=== PATIENT | female | born 1975 | race Caucasian/White ===

== ENCOUNTER 2023-08-05 20:39 | Outpatient (REF) | payer OTHER, SELFPAY ==
[2023-08-09 19:11] LABS: Age Gdln ACOG Testing Note (.); HPV Aptima Negative (Negative); IGP, Aptima HPV, rfx 16/18,45 Note (.)
== END 2023-08-05 20:40 | disposition home or self-care (01) ==
LOC: LAB 20:39
PROVIDERS: PCP Family Medicine; Visit Provider Obstetrics & Gynecology
DX: Z01.419 Encounter for gynecological examination (general) (routine) without abnormal findings (principal)
CPT/HCPCS: 87624; G0145

== ENCOUNTER 2024-08-27 21:04 | Outpatient (REF) | payer OTHER, SELFPAY ==
--- OUTSIDE RECORDS SUMMARY | 2024-08-27 21:07 | XMS_ITS | CCD ---
Author Organization [facility] Care Team Providers Care Commercial Lending Relationship Manager Name Role Phone Missy Godinez Unavailable MISSY GODINEZ Admitting Unavailable MISSY GODINEZ Attending Unavailable JOE, DR REIS Primary Care Unavailable MISSY GODINEZ Consulting Unavailable JOANNA, DR BLACKBURN Admitting Unavailable JOANNA, DR BLACKBURN Attending Unavailable JOE, DR REIS Primary Care Unavailable JOANNA, DR BLACKBURN Consulting Unavailable Judie Sinha Unavailable Brea Noe Unavailable STACIA Sinha Attending Provider [phone] Judie Sinha Attending Unavailable Judie Sinha Admitting Unavailable ALTAGRACIA CHRISTIAN Attending Unavailable BERE MARSHALL Attending Unavailable Crow Akins MD Primary Care Provider Allergies Allergy Classification Reported Allergen(s) Allergy Type Date of Onset Reaction(s) Facility (6 sources) Sulfacetamide / Sulfur Drug Allergy [facility] Other (1 source) Sulfonamides (Antibiotic) Drug allergy (disorder) 01-29-20 14 [facility] (1 source) Sulfamethoxazole Allergy to substance 02-21-20 2[facility]2c [facility] Work Phone: (1 source) Trimethoprim Drug Allergy 02-21-20 [facility] Medications Current Medications Medication Drug Class(es) Dates Sig (Normalized) Sig (Original) 12 hr buPROPion hydrochloride 150 mg extended release oral tablet (1 source) Aminoketone Start: 08-05-2023 take 1 tablet by mouth every twelve hours in the morning buPROPion SR (Wellbutrin SR) 150 MG 12 hr tablet Indications: Anxiety Take 1 tablet (150 mg) by mouth in the morning. 30 tablet 11 08/05/2023 Active Citalopram (6 sources) Serotonin Reuptake Inhibitor Citalopram Hydrobromide Active dextromethorphan hydrobromide 15 mg / guaiFENesin 400 mg / pseudoephedrine hydrochloride 60 mg oral tablet (1 source) alpha-Adrenergic Agonist, Uncompetitive V-duwydf-Q-aspartat e Receptor Antagonist, Sigma-1 Agonist Start: 11-23-2022 take 4 tablets by mouth every twenty-four hours as needed Capmist DM 60-15-400 MG as needed Orally every 4-6 hours as needed, max 4 tablets in 24 hours for 5 days Nov, Active hydrOXYzine hydrochloride 25 mg oral tablet (1 source) Antihistamine Start: 11-23-2022 take 1 tablet by mouth every twenty-four hours hydrOXYzine HCl 25 MG 1 tablet at bedtime as needed Orally Once a day for 7 days Nov, Active nitrofurantoin, macrocrystals 25 mg / nitrofurantoin, monohydrate 75 mg oral capsule (3 sources) Nitrofuran Antibacterial Start: 05-11-2023 take 1 capsule by mouth every twelve hours Macrobid 100 MG 1 cap(s) Orally bid for 5 day(s) Apr, Active ondansetron 4 mg disintegrating oral tablet (1 source) Serotonin-3 Receptor Antagonist Start: 11-23-2022 take 1 tablet by mouth every eight hours Ondansetron 4 MG 1 tablet on the tongue and allow to dissolve Orally every 8 hours for 5 days Nov, Active phenazopyridine hydrochloride 200 mg oral tablet (3 sources) Start: 05-11-2023 take 1 tablet by mouth every eight hours Pyridium 200 MG 1 tablet after meals Orally Three times a day for 2 day(s) Apr, Active predniSONE 20 mg oral tablet (1 source) Start: 10-17-2023 predniSONE (Deltasone) 20 MG tablet Indications: Pain and swelling of right lower leg , Pain and swelling of right knee 3 tabs x 2 days, 2 tabs x 2 days, 1 1/2 tab x 2 days, 1 tab x 2 days, 1/2 tab x 2 days then stop 16 tablet 10/17/2023 Active Completed/Discontinued Medications Medication Drug Class(es) Dates Sig (Normalized) Sig (Original) methylPREDNISolone 4 mg oral tablet (2 sources) Corticosteroid Start: methylPREDNISolone 4 MG as directed Orally Once a day for 6 days Aug, Not-Taking Problems Active Problems Problem Classification Problem Date Documented Da te Episodic/Chronic Abdominal pain (6 sources) Abdominal pain; Translations: [Abdominal pain] Episodic Anxiety disorders (1 source) Anxiety; Translations: [Anxiety disorder, unspecified] Onset: 02-20-2023 02-20-2023 Chronic Deficiency and other anemia (1 source) Iron deficiency anemia due to blood loss; Translations: [Iron deficiency anemia secondary to blood loss (chronic)] Onset: 02-20-2023 02-20-2023 Chronic Genitourinary symptoms and ill-defined conditions (4 sources) Dysuria; Translations: [Dysuria] Onset: 05-11-2023 Episodic Immunizations and screening for infectious disease (2 sources) Contact with and (suspected) exposure to other viral communicable diseases; Translations: [Encounter for screening for human papillomavirus (HPV)] Onset: 09-07-2021 Resolved: 09-07-2021 Episodic Influenza (1 source) Influenza due to other identified influenza virus with other respiratory manifestations Episodic Other diseases of bladder and urethra (1 source) Overactive bladder; Translations: [Overactive bladder] Onset: 02-20-2023 02-20-2023 Chronic Other female genital disorders (6 sources) Vaginal discomfort; Translations: [Unspecified condition associated with female genital organs and menstrual cycle] Episodic Other gastrointestinal disorders (6 sources) Irritable bowel syndrome; Translations: [Irritable bowel syndrome] Chronic Other gastrointestinal disorders (6 sources) Diarrhea; Translations: [Diarrhea] Episodic Other upper respiratory infections (1 source) Sinusitis; Translations: [Chronic sinusitis, unspecified] Onset: 02-20-2023 02-20-2023 Chronic Other upper respiratory infections (2 sources) Acute pansinusitis, unspecified; Translations: [Acute pharyngitis, unspecified] Onset: 09-07-2021 Resolved: 09-07-2021 Episodic Unclassified (3 sources) CONTACT W/AND (SUSP) EXPOS COVID-19; Translations: [CONTACT W/AND (SUSP) EXPOS COVID-19] Onset: 09-12-2021 Urinary tract infections (3 sources) Acute cystitis with hematuria Episodic Past or Other Problems Problem Classification Problem Date Documented Da te Episodic/Chronic Deficiency and other anemia (1 source) Microcytic anemia; Translations: [Iron deficiency anemia, unspecified] Onset: 02-20-2023 02-20-2023 Episodic Malaise and fatigue (1 source) Fatigue; Translations: [Other fatigue] Onset: 02-20-2023 02-20-2023 Episodic Other disorders of stomach and duodenum (1 source) Cyclical vomiting syndrome; Translations: [Cyclical vomiting syndrome unrelated to migraine] Onset: 02-20-2023 02-20-2023 Episodic Other gastrointestinal disorders (1 source) Slow transit constipation; Translations: [Slow transit constipation] Onset: 02-20-2023 02-20-2023 Episodic Unclassified (1 source) CONTACT W/AND (SUSP) EXPOS COVID-19; Translations: [CONTACT W/AND (SUSP) EXPOS COVID-19] Onset: 09-07-2021 Unclassified (1 source) Contact with and (suspected) exposure to covid-19 Z20.822 Varicose veins of lower extremity (1 source) Varicose vein of leg with phlebitis; Translations: [Varicose veins of right lower extremity with inflammation] Onset: 02-21-2023 02-21-2023 Episodic Viral infection (1 source) COVID-19 Results Test Name Value Interpretation Reference Range Facility Urinalysis - AUTOMATED Appearance (U) cloudy [facility] Other Bilirubin Ql (U) Negative [facility] Other Color (U) yellow [facility] Other Glucose Ql (U) Negative [facility] Other Hemoglobin Ql (U) large [facility] [employer] [facility] Other Ketones Ql (U) Negative [facility] Other Leukocyte esterase Test strip Ql (U) moderate [facility] Other Nitrite Ql (U) Negative [facility] Other pH (U) 6.5 [pH] [facility] Other Protein Ql (U) 30 [facility] Other Specific gravity (U) [Rel density] 1.020 [facility] Other Urobilinogen (U) [Mass/Vol] 0.2 mg/dL [facility] Other Urinalysis - AUTOMATED [facility] Other Urine Cultureon 05-11-2023 Urine Culture 20,000 [facility] Other Urine Culture <16 Susceptible [facility] Other Urine Culture <8/4 Susceptible [facility] Other Urine Culture <8 Susceptible [facility] Other Urine Culture <4 Susceptible [facility] Other Urine Culture <2 Susceptible [facility] Other Urine Culture <1 Susceptible [facility] Other Urine Culture <0.25 Susceptible [facility] Other Urine Culture <0.5 Susceptible [facility] Other Urine Culture <32 Susceptible [facility] Other Urine Culture <0.5/9.5 Susceptible [facility] Other Bacteria identified Cx Nom (U) Reason for Exam Dysuria Urine ORGANISM: Escherichia coli (O:ESCCOL) [place] Count 20,000 Aerobic MARIPOSA Charge ([id number]) ---- SUSCEPTIBILITY --- ORGANISM: O:ESCCOL ANTIBIOTIC INTERPRETATION MARIPOSA Amikacin S <16 Amoxacillin/K Clavulanate S <8 Ampicillin S <8 Ampicillin/Sulbactam S <4 Aztreonam S <4 Cefazolin S <2 Cefepime S <2 Ceftazidime S <1 Ceftazidime/Avibactam S <4 Ceftolozane/Tazobacta m S <2 Ceftriaxone S <1 Cefuroxime S <4 Ciprofloxacin S <0.25 Ertapenem S <0.5 Gentamicin S <2 Levofloxacin S <0.5 Meropenem S <1 Meropenem/Vaborbactam S <2 Nitrofurantoin S <32 Piperacillin/Tazobact am S <8 Tetracycline S <4 Tigecycline S <2 Tobramycin S <2 Trimethoprim/Sulfamet hoxazole S <0.5 S = SUSCEPTIBLE I = INTERMEDIATE R = RESISTANT BLANK = DATA NOT AVAILABLE, OR DRUG NOT ADVISABLE OR TESTED R* = RESISTANCE DUE TO EXTENDED SPECTRUM BETA-LACTAMASES ESBL = EXTENDED SPECTRUM BETA-LACTAMASE TFG = THYMIDINE-DEPENDENT STRAIN DANI = BETA-LACTAMASE POSITIVE IB = INDUCIBLE BETA-LACTAMASE. APPEARS IN PLACE OF 'S' WITH SPECIES KNOWN TO POSSESS INDUCIBLE BETA-LACTAMASES. POTENTIALLY THEY MAY BECOME RESISTANT TO ALL B-LACTAM DRUGS. PERFORMED BY: [place] [address] PATHOLOGIST METER INSTALLER SANDER QUIROZ M.D. [facility] Comment on above: Performed By: #### C UU #### [address] COVID/FLU RT-PCRon 3 SARS-CoV-2 (COVID-19) RNA RAJ+probe Ql (Unsp spec) Positive [facility] Other COVID/FLU RT-PCR Negative [facility] Other COVID/FLU RT-PCRon 2 SARS-CoV-2 (COVID-19) RNA RAJ+probe Ql (Unsp spec) Negative [facility] Other COVID/FLU RT-PCR Positive [facility] Other COVID/FLU RT-PCR Negative [facility] Other PAP ACOG PANEL 2: 30 to 65on 08-07-2022 . . Normal [facility] Comment on above: Result Comment: Perf ormed at: WB Performed By: #### [id number] #### [facility] [address] [place] [address] Dr. Yuliya Horn Age Gdln ACOG Testing 30-65 Normal [facility] Comment on above: Performed By: #### [id number] #### [facility] [address] [address] [address] Yuliya Horn DIAGNOSIS: Comment Normal [facility] Comment on above: Result Comment: NEGA TIVE FOR INTRAEPITHELIAL LESION OR MALIGNANCY. REACTIVE CELLULAR CHANGES AND/OR REPAIR ARE PRESENT. Performed at: WB Performed By: #### [id number] #### [facility] [address] [place] [address] Dr. Yuliya Horn Electronically signed by: Comment Normal [facility] Comment on above: Result Comment: Karlo Romo MD, Pathologist Performed at: WB Performed By: #### [id number] #### [facility] [address] [address] [address] Yuliya Horn HPV Aptima Negative Normal Negative [facility] Comment on above: Result Comment: This nucleic acid amplification test detects fourteen high-risk HPV types (16,18,31,33,35,39,45,51,52,56,58,59,66,68) without differentiation. Performed at: =G Performed By: #### [id number] #### [facility] [address] [address] [address] Yuliya Horn HPV Genotype Reflex Comment Normal [facility] Comment on above: Result Comment: Crit eria not met, HPV Genotype not performed. Performed at: WB Performed By: #### [id number] #### [facility] [address] [address] [address] Yuliya Horn Methodology: Comment Normal [facility] Comment on above: Result Comment: This liquid based ThinPrep(R) pap test was screened with the use of an image guided system. Performed at: WB Performed By: #### [id number] #### [facility] [address] [place] [address] Dr. Yuliya Horn Note: Comment Normal [facility] Comment on above: Result Comment: The Pap smear is a screening test designed to aid in the detection of premalignant and malignant conditions of the uterine cervix. It is not a diagnostic procedure and should not be used as the sole means of detecting cervical cancer. Both false-positive and false-negative reports do occur. . Performed at: WB Performed By: #### [id number] #### [facility] [address] [place] [address] Dr. Yuliya Horn Performed by: Comment Normal [facility] Comment on above: Result Comment: Brian Reyes, Anodic Operator (ASCP) Performed at: BA Performed By: #### [id number] #### [facility] [address] [place] [address] Dr. Yuliya Horn Specimen adequacy: Comment Normal [facility] Comment on above: Result Comment: Sati sfactory for evaluation. Endocervical and/or squamous metaplastic cells (endocervical component) are present. Performed at: WB Performed By: #### [id number] #### [facility] [address] [place] [address] Dr. Yuliya Horn CBC AUTO DIFFon 07-30-2022 BASO # 0.1 103/ul Normal 0.0-0.1 [facility] Comment on above: Performed By: #### C BC #### [facility] [address] [place] [address] Dr. Yuliya Horn Basophils/100 WBC (Bld) 0.9 % Normal 0.2-2.0 [facility] Comment on above: Performed By: #### C BC #### [facility] [address] [place] [address] Dr. Yuliya Horn EO # 0.2 103/ul Normal 0.0-0.7 [facility] Comment on above: Performed By: #### C BC #### [facility] [address] [place] [address] Dr. Yuliya Horn Eosinophils/100 WBC (Bld) 4.0 % Normal 0.9-7.0 [facility] Comment on above: Performed By: #### C BC #### [facility] [address] [place] [address] Dr. Yuliya Horn Erythrocyte distribution width (RBC) [Ratio] 12.7 % Normal 11.0-15.0 [facility] Comment on above: Performed By: #### C BC #### [facility] [address] [place] [address] Dr. Yuliya Horn Hematocrit (Bld) [Volume fraction] 46.5 % Normal 36.0-48.0 [facility] Comment on above: Performed By: #### C BC #### [facility] [address] [place] [address] Dr. Yuliya Horn Hemoglobin (Bld) [Mass/Vol] 15.4 g/dL Normal 12.0-16.0 [facility] Comment on above: Performed By: #### C BC #### [facility] [address] [place] [address] Dr. Yuliya Horn IG # 0.01 10e3/ul Normal 0.00-0.03 [facility] Comment on above: Performed By: #### C BC #### [facility] [address] [place] [address] Dr. Yuliya Horn IG % 0.2 % Normal 0.0-0.5 [facility] Comment on above: Performed By: #### C BC #### [facility] [address] [place] [address] Dr. Yuliya Horn LYMPH # 1.5 103/ul Normal 1.2-3.8 [facility] Comment on above: Performed By: #### C BC #### [facility] [address] [place] [address] Dr. Yuliya Horn Lymphocytes/100 WBC (Bld) 26.7 % Normal 20.5-60.0 [facility] Comment on above: Performed By: #### C BC #### [facility] [address] [place] [address] Dr. Yuliya Horn MANUAL DIFF REQ NO Normal [facility] Comment on above: Performed By: #### C BC #### [facility] [address] [address] [address] Yuliya Horn MCH (RBC) [Entitic mass] 30.3 pg Normal 26.7-34.0 [facility] Comment on above: Performed By: #### C BC #### [facility] [address] [address] [address] Yuliya Horn MCHC (RBC) [Mass/Vol] 33.1 g/dL Normal 29.9-35.2 [facility] Comment on above: Performed By: #### C BC #### [facility] [address] [address] [address] Yuliya Horn MCV (RBC) [Entitic vol] 91.4 fL Normal 81.0-99.0 [facility] Comment on above: Performed By: #### C BC #### [facility] [address] [place] [address] Dr. Yuliya Horn MONO # 0.4 103/ul Normal 0.3-0.8 [facility] Comment on above: Performed By: #### C BC #### [facility] [address] [place] [address] Dr. Yuliya Horn Monocytes/100 WBC (Bld) 6.9 % Normal 1.7-12.0 [facility] Comment on above: Performed By: #### C BC #### [facility] [address] [place] [address] Dr. Yuliya Horn NEUT # 3.4 103/ul Normal 1.4-6.5 [facility] Comment on above: Performed By: #### C BC #### [facility] [address] [place] [address] Dr. Yuliya Horn Neutrophils/100 WBC (Bld) 61.3 % Normal 43.0-75.0 [facility] Comment on above: Performed By: #### C BC #### [facility] [address] [place] [address] Dr. Yuliya Horn Platelet mean volume (Bld) [Entitic vol] 10.8 fL Normal 9.5-13.5 [facility] Comment on above: Performed By: #### C BC #### [facility] [address] [place] [address] Dr. Yuliya Horn PLT 221 103/ul Normal 150-450 [facility] Comment on above: Performed By: #### C BC #### [facility] [address] [place] [address] Dr. Yuliya Horn RBC 5.09 106/ul Normal 4.20-5.40 [facility] Comment on above: Performed By: #### C BC #### [facility] [address] [place] [address] Dr. Yuliya Horn WBC 5.5 103/ul Normal 4.0-11.0 [facility] Comment on above: Performed By: #### C BC #### [facility] [address] [place] [address] Dr. Yuliya Horn FERRITINon 07-30-2022 Ferritin [Mass/Vol] 63.0 ng/mL Normal 6.2-137.0 [facility] Comment on above: Performed By: #### F ERR, FT4 #### [facility] [address] [place] [address] Dr. Yuliya Horn FREE T4on 07-30-2022 Free T4 [Mass/Vol] 0.83 ng/dL Normal 0.76-1.46 [facility] Comment on above: Performed By: #### F ERR, FT4 #### [facility] [address] [place] [address] Dr. Yuliya Horn GLYCOHEMOGLOBIN A1Con 2021 ADA RECOMMENDATION SEE BELOW Normal [facility] Comment on above: Result Comment: ADA RECOMMENDED LIMIT 4.0 - 6.0 ADA THERAPEUTIC TARGET < 7.0 ACTION SUGGESTED > 7.0 Performed By: #### A 1C #### [facility] [address] [place] [address] Dr. Yuliya Horn Glucose [Mass/Vol] 105 mg/dL Normal [facility] Comment on above: Performed By: #### A 1C #### [facility] [address] [place] [address] Dr. Yuliya Horn HbA1c (Bld) [Mass fraction] 5.3 % Normal 4.5-6.2 [facility] Comment on above: Performed By: #### A 1C #### [facility] [address] [place] [address] Dr. Yuliya Horn TSHon 07-30-2022 TSH 2.175 uIU/mL Normal 0.358-3.740 [facility] Comment on above: Performed By: #### T SH #### [facility] [address] [address] [address] Yuliya Horn COVID Quick Testingon 2020 Result Negative [facility] Other Covid-19 PCR ([facility])on 08-23 SARS-CoV-2 (COVID-19) RNA RAJ+probe Ql (Unsp spec) Not detected Normal NOT DETECTED [facility] Comment on above: Result Comment: This test is not yet approved or cleared by the [place] FDA. When there are no FDA-approved or cleared tests available, and other criteria are met, FDA can make tests available under an emergency access mechanism called an Emergency Use Authorization (EUA). The EUA for this test is supported by the [place] of Health and Human Service's (HHS's) declaration that circumstances exist to justify the emergency use of in vitro diagnostics for the detection and/or diagnosis of the virus that causes COVID-19. This EUA will remain in effect (meaning this test can be used) for the duration of the COVID-19 declaration justifying emergency of IVDs, unless it is terminated or revoked by FDA (after which the test may no longer be used). When diagnostic testing is negative, the possibility of a false negative should be considered in the context of a patient's recent exposures and the presence of clinical signs and symptoms consistent with SARS-CoV-2. Performed By: #### C VDTBH #### [facility] [address] [place], [place] [id number] Dr. Yuliya Horn Vital Signs Date Time Vital Sign Value Performing Clinician Facility 05-11-2023 09:30-0400 Body height 170.18 cm Judie Sinha Other [facility] Other 05-11-2023 09:30-0400 Body mass index (BMI) [Ratio] 28.19 kg/m2 Judie Sinha Other [facility] Other 05-11-2023 09:30-0400 Body temperature 97.9 [degF] Judie Ernestine Other [facility] Other 05-11-2023 09:30-0400 Body weight 81.65 kg Judie Yungmond Other [facility] Other 05-11-2023 09:30-0400 Diastolic blood pressure 77 mm[Hg] Judie Sinha Other [facility] Other 05-11-2023 09:30-0400 Respiratory rate 16 /min Judie Sinha Other [facility] Other 05-11-2023 09:30-0400 SaO2% (BldA) [Mass fraction] 100 % Judie Sinha Other [facility] Other 05-11-2023 09:30-0400 Systolic blood pressure 124 mm[Hg] Judie Yungmond Other [facility] Other 11-23-2022 09:45-0500 Body height 170.18 cm Brea Noe Other [facility] Other 11-23-2022 09:45-0500 Body mass index (BMI) [Ratio] 28.97 kg/m2 Brea Hasmukh Other [facility] Other 11-23-2022 09:45-0500 Body temperature 98.7 [degF] Brea Noe Other [facility] Other 11-23-2022 09:45-0500 Body weight 83.92 kg Brea Noe Other [facility] Other 11-23-2022 09:45-0500 Respiratory rate 18 /min Brea Noe Other [facility] Other 11-23-2022 09:45-0500 SaO2% (BldA) [Mass fraction] 97 % Brea Noe Other [facility] Other 09-07-2022 11:15-0500 Body height 170.18 cm Judie Ernestine Other [facility] Other 09-07-2022 11:15-0500 Body mass index (BMI) [Ratio] 26.94 kg/m2 Judie Ernestine Other [facility] Other 09-07-2022 11:15-0500 Body temperature 98.2 [degF] Judie Ernestine Other [facility] Other 09-07-2022 11:15-0500 Body weight 78.02 kg Judie Ernestine Other [facility] Other 09-07-2022 11:15-0500 Diastolic blood pressure 86 mm[Hg] Judie Ernestine Other [facility] Other 09-07-2022 11:15-0500 Respiratory rate 18 /min Judie Ernestine Other [facility] Other 09-07-2022 11:15-0500 SaO2% (BldA) [Mass fraction] 99 % Judiesharath Sinha Other [facility] Other 09-07-2022 11:15-0500 Systolic blood pressure 129 mm[Hg] Judie Sinha Other [facility] Other 09-07-2021 11:15-0500 Body height 170.18 cm Missy Godinez Other [facility] Other 09-07-2021 11:15-0500 Body mass index (BMI) [Ratio] 26.62 kg/m2 Missy Godinez Other [facility] Other 09-07-2021 11:15-0500 Body temperature 98.6 [degF] Missy Godinez Other [facility] Other 09-07-2021 11:15-0500 Body weight 77.11 kg Missy Godinez Other [facility] Other 09-07-2021 11:15-0500 Respiratory rate 18 /min Missy Godinez Other [facility] Other 09-07-2021 11:15-0500 SaO2% (BldA) [Mass fraction] 98 % Missy Godinez Other [facility] Other Encounters Encounter Date Encounter Type Care Provider Facility Start: 08-27-2024 End: 08-27-2024 Bamboo flowsheet Ebre Joanna DO Work Phone: [facility] Start: 08-27-2024 End: 08-27-2024 Bamboo flowsheet Bere Joanna DO Work Phone: [facility] Start: 10-17-2023 End: 10-17-2023 ambulatory ALTAGRACIA CHRISTIAN Not Available Start: 08-05-2023 End: 08-05-2023 ambulatory BERE MARSHALL Not Available Start: 05-11-2023 Office outpatient vi sit 15 minutes Judie Ernestine [facility] Start: 05-11-2023 End: 05-11-2023 ambulatory Judie Ernestine [facility] Other Start: 05-11-2023 End: 05-11-2023 Departed Referred DIRECTOR CUSTOMER-C Judie Sinha Work Phone: [facility] Work Phone: Start: 11-23-2022 End: 11-23-2022 ambulatory Brea Noe Other [facility] Other Start: 11-23-2022 Office outpatient vi sit 25 minutes Brea Hasmukh [facility] Start: 09-07-2022 End: 09-07-2022 ambulatory Judie Ernestine Other [facility] Other Start: 09-07-2022 Office outpatient vi sit 15 minutes Judie Ernestine [facility] Start: 08-02-2022 Encounter for gynecological examination (general) (routine) without abnormal findings DR BERE MARSHALL [facility] Start: 07-30-2022 End: 07-30-[address] BERE MARSHALL Facility:[facility] Start: 07-30-2022 End: 07-30-2022 Encounter for gynecological examination (general) (routine) without abnormal findings DR BERE MARSHALL Facility:[facility] Start: 09-07-2021 End: 09-07-2021 ambulatory MISSY GODINEZ [facility] Other Start: 09-07-2021 Office outpatient vi sit 15 minutes Missy Godinez [facility] Procedures Date Procedure Procedure Detail Performing Clinician Start: 08-05-2023 Microscopic observat ion [Identifier] in Cervix by Cyto stain Bere Marshall DO Work Phone: Start: 05-11-2023 Piperacillin/tazobactam Judie Sinha Other Start: 07-30-2022 Mammography Bere jimenez DO Work Phone: Plan of Treatment Date Care Activity Detail Author Start: 08-05-2026 Screening for malign ant neoplasm of cervix [facility] Start: 08-27-2024 End: 08-27-2024 Professional / ancillary services management 08/27/2024 2:30 PM EST Ancillary Procedure [facility] [address] [place] [id number] [facility] Start: 08-27-2024 End: 08-27-2024 Patient encounter procedure 08/27/2024 9:20 AM EST Office Visit [facility] OB [address] [place] [id number] Bere Marshall, DO [address] [address] Arrived [facility] Comment on above: Arrived Start: 05-24-2024 Influenza vaccination Influenz a Vaccine (#1) [facility] Start: 07-30-2023 Screening for malign ant neoplasm of breast Mammogram [facility] Start: 05-11-2023 Bacteria identified in Urine by Culture [facility] Start: 2007 Screening for malign ant neoplasm of cervix HPV/Cotest [facility] Start: 1977 Screening for malign ant neoplasm of colon [facility] Payers Date Payer Category Payer Self-pay [id number] 2023 Private Health Insurance [id number] 2023 Private Health Insurance [facility] [id number] 1977 Unknown [id number] 1977 Unknown [id number] 1977 Unknown [id number] 1977 Unknown [id number] 1959 Private Health Insurance [id number] Private Health Insurance [id number] Unknown [place] WATTERS/IFRAH [id number] Unknown [id number] Social History Date Type Detail Facility Unknown if ever smoked [facility] Other Start: 02-21-2023 End: 10-17-2023 Sex Assigned At [place] [employer] Other Start: 1975 Sex Assigned At Female F [facility] Start: 02-20-2023 Tobacco smoking stat us VTIS Never smoked tobacco [facility] Start: 02-20-2023 Tobacco use and exposure Smokeless tobacco non-user [facility] Start: 10-17-2023 Alcoholic beverage intake Ex-drinker (finding) [facility] Start: 02-21-2023 End: 10-17-2023 History of Social function [facility] Frequency of Alcohol Consumption Not on file [facility] How often do you hav e 6 or more drinks on 1 occasion? Never [facility] Start: 07-21-2023 Alcohol Comment caffeine: 3-4 cups per day chocolate, soda [facility] Start: 1975 Sex assigned at Not on file [facility] Evaluation note 05-11-2023 Note Date & Type Note Facility 05-11-2023 Evaluation note Encounter Date Diagnosis Assessment Notes Apr, Dysuria (ICD-10 - R30.0) Apr, Acute cystitis with hematuria (ICD-10 - N30.01) Acute cystitis home care material was printed Drink plenty fluids, get plenty of rest. Take the Macrobid and Pyridium as prescribed until gone. Follow-up with your family physician if no improvement in 2 to 3 days. Take Tylenol or Motrin as needed for aches pains or fevers [facility] Other Evaluation note 11-23-2022 Note Date & Type Note Facility 11-23-2022 Evaluation note Encounter Date Diagnosis Assessment Notes Nov, Sore throat (ICD-10 - J02.9) Nov, COVID-19 (ICD-10 - U07.1) COVID test performed in office today. Advised patient that test was positive. Influenza A/B test negative. Instructed patient to isolate per CDC guidelines for 5 days from symptom onset, mask 5 days following. May return to work/activities outside home after isolation period as long as symptoms are improving and has been afebrile for 24 hours without use of antipyretic. Advised patient that treatment of COVID is with viral supportive care, rx of Capmist and Zofran to use as directed, Tylenol/Motrin as needed for body aches/fever. Increase fluids and rest. Encouraged use of cool mist humidifier. Patient requested something to help her sleep, will send in rx of Hydroxyzine. Follow-up with PCP to advise of positive result and further management. Immediate eval for SOB, difficulty, chest pain, fevers that do not break with antipyretic or any other concerning symptoms as reviewed on patient education handout. Patient verbalizes understanding and is agreeable to treatment plan. Patient left in stable condition [facility] Other Evaluation note 09-07-2022 Note Date & Type Note Facility 09-07-2022 Evaluation note Encounter Date Diagnosis Assessment Notes Aug, Contact with and (suspected) exposure to covid-19 (ICD-10 - Z20.822) Aug, Influenza A (ICD-10 - J10.1) Influenza: adult home care material was printed Drink plenty fluids, get plenty of rest. Take Tylenol or Motrin for aches pains or fevers. Follow-up with your family physician if no improvement in 2 to 3 days. [facility] Other Evaluation note 09-07-2021 Note Date & Type Note Facility 09-07-2021 Evaluation note Encounter Date Diagnosis Assessment Notes Aug, Contact with and (suspected) exposure to other viral communicable diseases (ICD-10 - Z20.828) Even though COVID RAPID test is NEGATIVE, I am highly suspicious at this time you may be positive due to the symptoms. Recommend patient follow Quarantine guidelines until you follow up with PCP.. Recommend OTC medication such as Mucinex, Sea salt nasal spray, Cepecol, Tylenol, Zyrtec, as they can help with symptoms VIRAL URI HANDOUT GIVEN TO PATIENT THAT RECOMMENDS OTC MEDICATIONS, FOLLOW UP AND WHEN TO SEEK EMERGENCY TREATMENT Aug, Acute non-recurrent pansinusitis (ICD-10 - J01.40) Take medications as directed. Use saline nasal spray prior to presciption nasal spray. Complete all doses of medication even if you start to feel better. Symptoms should improve during treatment period. D Follow up with primary care provider if no improvement of symptoms occur by end of treatment. Aug, Other Additional time spent conducting pre-visit phone call, screening for symptoms, instructions on social distancing, application and removal of PPE, and cleaning of examination room, equipment and supplies was preformed. Patient education given for testing methodology and results. Patient care instructions given in writting by [facility] Home document. [facility] Other Evaluation note Note Date & Type Note Facility Evaluation note No assessment information availa [facility] Work Phone: History general Narrative - Reported Note Date & Type Note Facility History general Narrative - Reported Type Medical History chronic depression Medical History anxiety Surgical History tubual ligation 2005 [facility] Other History general Narrative - Reported Note Date & Type Note Facility History general Narrative - Reported Type Medical History chronic depression Medical History anxiety Surgical History tubual ligation 2006 Surgical History ablasion [facility] Other Summary Purpose Family History No Family History Records FoundNo Family History Records FoundNo Family History Records Found Advance Directives Advance Directive Response Recorded Date/ Time Advance Directives No May 8:09pm Chief Complaint and Reason for Visit Chief Complaint Dysuria Additional Source Comments REASON FOR VISIT (unrecogniz ed section and content) SINUS CONGESTION, COUGH, H/A , COVID Provider VisitCOUGH H/A FEVER SORE THROAT VOMITINGCONGESTION, HEADACHE, CHILLS, FEVER, BODYACHESPOSSIBLE UTIPOSSIBLE UTIPOSSIBLE UTI INFORMATION SOURCE (unrecogn ized section and content) DATE CREATED AUTHOR 08/07/2022 [facility] DATE CREATED AUTHOR AUTHOR'S ORGANIZ ATION 05/15/2023 [facility] DATE CREATED AUTHOR AUTHOR'S ORGANIZ ATION 10/18/2023 [facility] EPIC Care Teams (unrecognized sec tion and content) Team Status: Inactive Member Role Status Dates Judie Sinha , DIRECTOR CUSTOMER-C Attending Provider Active [employer] Relationship Manager Relationship Specialty Start Date End Date Crow Akins MD [address] [place] [address] PCP - General Family Medicine 02/12/23 Goals (unrecognized section and content) Goals may be documented in a n alternate section FOR RECORDS PERTAINING TO PATIENTS WHO ARE OR HAVE BEEN ENROLLED IN A CHEMICAL DEPENDENCY/SUBSTANCEABUSE PROGRAM, SOME INFORMATION MAY BE OMITTED. This clinical summary was aggregated from multiple sources. Caution should be exercised in using it in the provision of clinical care. This summary normalizes information from multiple sources, and as a consequence, information in this document may materially change the coding, format and clinical context of patient data. In addition, data may be omitted in some cases. CLINICAL DECISIONS SHOULD BE BASED ON THE PRIMARY CLINICAL RECORDS. [facility]. provides no warranty or guarantee of the accuracy or completeness of information in this document.
== END 2024-08-27 21:05 | disposition home or self-care (01) ==
LOC: LAB 21:04
PROVIDERS: PCP Family Medicine; Visit Provider Obstetrics & Gynecology
DX: Z01.419 Encounter for gynecological examination (general) (routine) without abnormal findings (principal)
CPT/HCPCS: 87624; 88175

== ENCOUNTER 2024-09-24 14:31 | Outpatient (OUT) | payer OTHER, SELFPAY ==
--- NOTE | 2024-09-24 14:43 | MM_ITS ---
Patient Name: DAVID NIELSEN MR#: [id number] : 1975 Exam Date: 09/24/2024 Ordering Doctor: DR Ananth Marshall . RADIOLOGY REPORT PROCEDURE: MM DIAGNOSTIC MAMMO UNILAT RT, 09/24/2024, 14:46 US BREAST RT LIMITED, 09/24/2024, 15:12 COMPARISON: MM TOMOSYNTHESIS SCREENING BI, 08/27/2024. INDICATIONS: Abnormal MAmmogram Calculator Name NCI Breast Cancer Risk Assessment Tool 5 Year Breast Cancer Risk 0.70% Lifetime Breast Cancer Risk 7.70% Personal Breast Cancer No Personal Ovarian Cancer No Treatments None Family Cancers None LOCATION: [facility] BREAST COMPOSITION: There are scattered areas of fibroglandular density. FINDINGS: DIAGNOSTIC CATEGORY 3--PROBABLY BENIGN FINDING. THE FOLLOWING FINDING(S) HAS A HIGH PROBABILITY OF A BENIGN ETIOLOGY: Spot compression views of the right breast demonstrate a 5.5 mm well-circumscribed round nodule upper outer quadrant posterior right breast. A 2nd 4.4 mm round well-circumscribed nodule is noted in the lower inner quadrant anterior right breast. No ultrasound abnormality to correspond in these 2 lesions. Six-month follow-up mammogram recommended Ultrasound demonstrates at the 4 o'clock position complex cystic structure measuring 8.4 x 4.9 x 8.2 cm with some peripheral blood flow. Six-month follow-up ultrasound is recommended RECOMMENDATIONS: SHORT TERM FOLLOW-UP ULTRASOUND RIGHT BREAST IN 6 MONTHS. SHORT TERM FOLLOW-UP DIAGNOSTIC MAMMOGRAM RIGHT BREAST IN 6 MONTHS. PLEASE NOTE: A NORMAL MAMMOGRAM DOES NOT EXCLUDE THE POSSIBILITY OF BREAST CANCER. A CLINICALLY SUSPICIOUS PALPABLE LUMP SHOULD BE BIOPSIED. Dictated by: Faisal Saeed MD on 09/24/2024 at 15:33 Approved by: Faisal Saeed MD on 09/24/2024 at 15:37
--- OUTSIDE RECORDS SUMMARY | 2024-09-24 14:53 | XMS_ITS | CCD ---
Author Organization [facility] Inform ion Partnership [facility] Care Team Providers Care [employer] Hand Engraver Name Role Phone Missy Godinez Unavailable MISSY GODINEZ Admitting Unavailable MISSY GODINEZ Attending Unavailable JOE, DR REIS Primary Care Unavailable MISSY GODINEZ Consulting Unavailable JOANNA, DR BLACKBURN Admitting Unavailable JOANNA, DR BLACKBURN Attending Unavailable JOE, DR REIS Primary Care Unavailable JOANNA, DR BLACKBURN Consulting Unavailable Judie Sinha Unavailable Brea Noe Unavailable STACIA Sinha Attending Provider [phone] Judie Sinha Attending Unavailable Judie Sinha Admitting Unavailable Crow Akins MD Primary Care Provider ALTAGRACIA CHRISTIAN Attending Unavailable BERE MARSHALL Attending Unavailable BERE MARSHALL Referring Unavailable Allergies Allergy Classification Reported Allergen(s) Allergy Type Date of Onset Reaction(s) Facility (6 sources) Sulfacetamide / Sulfur Drug Allergy [facility] Other (1 source) Sulfonamides (Antibiotic) Drug allergy (disorder) 01-29-20 14 [facility] Repository (4 sources) Sulfamethoxazole Allergy to substance 02-21-20 Rash [facility] Work Phone: (4 sources) Trimethoprim Drug Allergy 02-21-[address] [facility] Healthcare Medications Current Medications Medication Drug Class(es) Dates Sig (Normalized) Sig (Original) 12 hr buPROPion hydrochloride 150 mg extended release oral tablet (6 sources) Aminoketone Start: 08-27-2024 End: 08-27-2025 take 1 tablet by mouth once daily buPROPion SR (Wellbutrin SR) 150 MG 12 hr tablet Indications: Anxiety Take 1 tablet (150 mg) by mouth Daily 30 tablet 08/27/2024 08/27/2025 Active Start: 08-05-2023 End: 08-27-2024 take 1 tablet by mouth every twelve hours in the morning buPROPion SR (Wellbutrin SR) 150 MG 12 hr tablet Indications: Anxiety Take 1 tablet (150 mg) by mouth in the morning. 30 tablet 08/05/2023 08/27/2024 Discontinued (Reorder) Citalopram (6 sources) Serotonin Reuptake Inhibitor Citalopram Hydrobromide Active dextromethorphan hydrobromide 15 mg / guaiFENesin 400 mg / pseudoephedrine hydrochloride 60 mg oral tablet (1 source) alpha-Adrenergic Agonist, Uncompetitive F-vvbtbo-S-aspartate Receptor Antagonist, Sigma-1 Agonist Start: take 4 tablets by mouth every twenty-four hours as needed Capmist DM 60-15-400 MG as needed Orally every 4-6 hours as needed, max 4 tablets in 24 hours for 5 days Nov, Active hydrOXYzine hydrochloride 25 mg oral tablet (1 source) Antihistamine Start: take 1 tablet by mouth every twenty-four hours hydrOXYzine HCl 25 MG 1 tablet at bedtime as needed Orally Once a day for 7 days Nov, Active nitrofurantoin, macrocrystals 25 mg / nitrofurantoin, monohydrate 75 mg oral capsule (3 sources) Nitrofuran Antibacterial Start: take 1 capsule by mouth every twelve hours Macrobid 100 MG 1 cap(s) Orally bid for 5 day(s) Apr, Active ondansetron 4 mg disintegrating oral tablet (1 source) Serotonin-3 Receptor Antagonist Start: take 1 tablet by mouth every eight hours Ondansetron 4 MG 1 tablet on the tongue and allow to dissolve Orally every 8 hours for 5 days Nov, Active phenazopyridine hydrochloride 200 mg oral tablet (3 sources) Start: take 1 tablet by mouth every eight hours Pyridium 200 MG 1 tablet after meals Orally Three times a day for 2 day(s) Apr, Active predniSONE 20 mg oral tablet (4 sources) Start: predniSONE (Deltasone) 20 MG tablet Indications: Pain [...] pain; Translations: [Abdominal pain] Episodic Anxiety disorders (6 sources) Anxiety; Translations: [Anxiety disorder, unspecified] Onset: 02-20-2023 02-20-2023 Chronic Deficiency and other anemia (4 sources) Iron deficiency anemia due to blood loss; [...] Episodic Other diseases of bladder and urethra (4 sources) Overactive bladder; Translations: [Overactive bladder] Onset: 02-20-2023 02-20-2023 Chronic Other female genital disorders (6 sources) Vaginal discomfort; Translations: [Unspecified condition associated with female genital organs and menstrual cycle] Episodic Other gastrointestinal disorders (6 sources) Irritable bowel syndrome; Translations: [Irritable bowel syndrome] Chronic Other gastrointestinal disorders (6 sources) Diarrhea; Translations: [Diarrhea] Episodic Other upper respiratory infections (4 sources) Sinusitis; Translations: [Chronic sinusitis, unspecified] Onset: 02-20-2023 [...] Da te Episodic/Chronic Deficiency and other anemia (4 sources) Microcytic anemia; Translations: [Iron deficiency anemia, unspecified] Onset: 02-20-2023 02-20-2023 Episodic Malaise and fatigue (4 sources) Fatigue; Translations: [Other fatigue] Onset: 02-20-2023 02-20-2023 Episodic Other disorders of stomach and duodenum (4 sources) Cyclical vomiting syndrome; Translations: [Cyclical vomiting syndrome unrelated to migraine] Onset: 02-20-2023 02-20-2023 Episodic Other gastrointestinal disorders (4 sources) Slow transit constipation; Translations: [Slow transit constipation] Onset: 02-20-2023 02-20-2023 Episodic Unclassified (1 source) CONTACT W/AND (SUSP) EXPOS COVID-19; Translations: [CONTACT W/AND (SUSP) EXPOS COVID-19] Onset: 09-07-2021 Unclassified (1 source) Contact with and (suspected) exposure to covid-19 Z20.822 Varicose veins of lower extremity (4 sources) Varicose vein of leg with phlebitis; Translations: [Varicose veins of right lower extremity with inflammation] Onset: 02-21-2023 02-21-2023 Episodic Viral infection (1 source) COVID-19 Results Test Name Value Interpretation Reference Range Facility IGP,APTIMA HPV,AGE GDLNon AGE GDLN ACOG TESTING Note . [facility] Comment on above: TESTS RESULT FLAG UN ITS REF RANGE LAB Clinician Provided Cytology Information Source.............Cervix;Endocervix No. of containers..01 ThinPrep Vial Age Analisa GONZALES Kaia... 32 FLAG LEGEND: L-Low Normal,H-High Normal,LL-Alert Low,HH-Alert High <-Panic Low,>-Panic High,A-Abnormal,AA-Critical Abnormal Performed at: 01 =[address] [address] Annie Mares MD, HPV APTIMA Negative Negative [facility] Comment on above: This nucleic acid am plification test detects fourteen high- risk HPV types (16,18,31,33,35,39,45,51,52,56,58,59,66,68) without differentiation. Performed at: =[address] [id number] [place] Driver: Annie Mares MD, Phone: [phone] Performed at: [facility] [address] [place] [id number] [place] Driver: Jeffy Spears MD, Phone: [phone] IGP, APTIMA HPV, RFX 16/18,45 Note . [facility] Comment on above: TESTS RESULT FLAG UN ITS REF RANGE LAB DIAGNOSIS: 02 NEGATIVE FOR INTRAEPITHELIAL LESION OR MALIGNANCY. Specimen adequacy: 02 Satisfactory for evaluation. Endocervical and/or squamous metaplastic cells (endocervical component) are present. Performed by: 02 Fabricio Hogan Sheet Metal Pattern Cutter ([facility]) . 02 Note: Note 03 The Pap smear is a screening test designed to aid in the detection of premalignant and malignant conditions of the uterine cervix. It is not a diagnostic procedure and should not be used as the sole means of detecting cervical cancer. Both false-positive and false-negative reports do occur. Test Methodology: Note 03 This liquid based ThinPrep(R) pap test was screened with the use of an image guided system. HPV Genotype Reflex Note 02 Criteria not met, HPV Genotype not performed. FLAG LEGEND: L-Low Normal,H-High Normal,LL-Alert Low,HH-Alert High <-Panic Low,>-Panic High,A-Abnormal,AA-Critical Abnormal Performed at: 02 [facility] [address] [place] [address] Jeffy Spears MD, [address] [facility] [address] [address] Annie Mares MD, BRUSH-SPATULA CERVIX ENDOCERVIX [facility] BI MAMMOGRAM SCREENING TOMOS YNTHESIS BILATERALon 08-27-2024 BI MAMMOGRAM SCREENING TOMOSYNTHESIS BILATERAL This is a summary report. The complete report is available in the patient's medical record. If you cannot access the medical record, please contact the sending organization for a detailed fax or copy. Examination: BI MAMMOGRAM SCREENING TOMOSYNTHESIS BILATERAL Clinical History: Breast cancer screening Technique: Screening digital mammography study of both breasts was performed with 2-D and 3-D tomosynthesis imaging. Study was compared to the prior exam dated 06/03/2019. Findings: Round approximately 5 mm nodular density in the superolateral aspect of the right breast posteriorly. Round approximately 4 mm nodular density in the inferomedial aspect of the right breast anteriorly. Follow-up diagnostic mammogram study of the right breast as well as ultrasound study of the right breast recommended for further evaluation. At the diagnostic setting coned-down compression views as well as true lateral view of the right breast obtained. At the ultrasound setting images may be obtained from the 8:00 to the 12 o'clock position to evaluate the superolateral nodule and from 2:00 to 6:00 to evaluate the inferomedial nodule. Axillary lymph nodes are noted bilaterally. IMPRESSION: Impression: There are 2 asymmetric densities in the right breast as described. Follow-up diagnostic mammogram study of the right breast with views suggested above as well as ultrasound study of the right breast with views suggested above recommended for further evaluation. BIRADS 0 - Incomplete: Needs Additional Imaging Evaluation DENSITY: There are scattered areas of fibroglandular density. FOLLOW-UP: Additional Imaging Diagnostic Mammogram, ultrasound ELECTRONICALLY SIGNED BY: Rell De M.D. Abnormal Not Available Urinalysis - AUTOMATEDon Appearance (U) cloudy MD [employer] Other Bilirubin Ql (U) Negative [employer] Other Color (U) yellow [employer] Other Glucose Ql (U) Negative [facility] [employer] Other Hemoglobin Ql (U) large [employer] Other Ketones Ql (U) Negative [facility] [employer] Other Leukocyte esterase Test strip Ql (U) moderate [employer] Other Nitrite Ql (U) Negative [facility] [employer] Other pH (U) 6.5 [pH] [employer] Other Protein Ql (U) 30 MD [employer] Other Specific gravity (U) [Rel density] 1.020 [employer] Other Urobilinogen (U) [Mass/Vol] 0.2 mg/dL [employer] Other Urinalysis - AUTOMATED [employer] Other Urine Cultureon 05-11-2023 Urine Culture 20,000 [employer] Other Urine Culture <16 Susceptible [employer] Other Urine Culture <8/4 Susceptible [facility] [employer] Other Urine Culture <8 Susceptible [facility] [employer] Other Urine Culture <4 Susceptible [facility] [employer] Other Urine Culture <2 Susceptible [facility] [employer] Other Urine Culture <1 Susceptible [facility] [employer] Other Urine Culture <0.25 Susceptible [facility] [employer] Other Urine Culture <0.5 Susceptible [facility] [employer] Other Urine Culture <32 Susceptible MD [employer] Other Urine Culture <0.5/9.5 Susceptible [facility] [employer] Other Bacteria identified Cx Nom (U) Reason for Exam Dysuria Urine ORGANISM: Escherichia coli (O:ESCCOL) [place] Count 20,000 Aerobic MARIPOSA Charge (NMIC56) ---- [...] RESISTANT TO ALL B-LACTAM DRUGS. PERFORMED BY: [facility] [address] [place] [address] PATHOLOGIST OCCUPATIONAL HEALTH NURSING DIRECTOR SANDER QUIROZ M.D. Normal [facility] Comment on above: Performed By: #### C UU #### [facility] [address] COVID/FLU RT-PCRon 3 SARS-CoV-2 (COVID-19) RNA RAJ+probe Ql (Unsp spec) Positive [employer] Other COVID/FLU RT-PCR Negative [employer] Other COVID/FLU RT-PCRon 2 SARS-CoV-2 (COVID-19) RNA RAJ+probe Ql (Unsp spec) Negative [employer] Other COVID/FLU RT-PCR Positive [employer] Other COVID/FLU RT-PCR Negative [employer] Other PAP ACOG PANEL 2: 30 to 65on 08-07-2022 . . Normal [facility] Comment on above: Result Comment: Perf ormed at: WB Performed By: #### [id number] #### [facility] [address] [address] [address] Yuliya Horn Age Gdln ACOG Testing 30-65 Normal [facility] Comment on above: Performed By: #### [id number] #### [facility] [address] [place] [address] Dr. Yuliya Horn DIAGNOSIS: Comment Normal [facility] Comment on above: Result Comment: NEGA TIVE FOR INTRAEPITHELIAL LESION OR MALIGNANCY. REACTIVE CELLULAR CHANGES AND/OR REPAIR ARE PRESENT. Performed at: WB Performed By: #### [id number] #### [facility] [address] [place] [address] Dr. Yuliya Horn Electronically signed by: Comment Normal [facility] Comment on above: Result Comment: Karlo Romo MD, Pathologist Performed at: WB Performed By: #### [id number] #### [facility] [address] [place] [address] Dr. Yuliya Horn HPV Aptima Negative Normal Negative [facility] Comment on above: Result Comment: This nucleic acid amplification test detects fourteen high-risk HPV types (16,18,31,33,35,39,45,51,52,56,58,59,66,68) without differentiation. Performed at: =G Performed By: #### [id number] #### [facility] [address] [place] [address] Dr. Yuliya Horn HPV Genotype Reflex Comment Normal [facility] Comment on above: Result Comment: Crit eria not met, HPV Genotype not performed. Performed at: WB Performed By: #### [id number] #### [facility] [address] [place] [address] Dr. Yuliya Horn Methodology: Comment Normal [facility] Comment on above: Result Comment: This liquid based ThinPrep(R) pap test was screened with the use of an image guided system. Performed at: WB Performed By: #### [id number] #### [facility] [address] [place] [address] Dr. Yuliya Horn Note: Comment Normal [facility] Comment on above: Result Comment: The Pap smear is a screening test designed to aid in the detection of premalignant and malignant conditions of the uterine cervix. It is not a diagnostic procedure and should not be used as the sole means of detecting cervical cancer. Both false-positive and false-negative reports do occur. . Performed at: WB Performed By: #### [id number] #### [facility] [address] [place] [address] Dr. Yuliya Horn Performed by: Comment Normal [facility] Comment on above: Result Comment: Brian Reyes, Sheet Metal Pattern Cutter ([employer]) Performed at: BA Performed By: #### [id number] #### [facility] [address] [place] [address] Dr. Yuliya Horn Specimen adequacy: Comment Normal [facility] Comment on above: Result Comment: Sati sfactory for evaluation. Endocervical and/or squamous metaplastic cells (endocervical component) are present. Performed at: WB Performed By: #### [id number] #### [facility] [address] [place] [address] Dr. Yuliya Horn CBC AUTO DIFFon 07-30-2022 BASO # 0.1 103/ul Normal 0.0-0.1 [facility] Comment on above: Performed By: #### C BC #### [facility] [address] [place] [address] Dr. Yuliya Horn Basophils/100 WBC (Bld) 0.9 % Normal 0.2-2.0 [facility] Comment on above: Performed By: #### C BC #### [facility] [address] [place] [address] Dr. Yuliya Horn EO # 0.2 103/ul Normal 0.0-0.7 [facility] Comment on above: Performed By: #### C BC #### [facility] [address] [place] [address] Dr. Yuliya Horn Eosinophils/100 WBC (Bld) 4.0 % Normal 0.9-7.0 [facility] Comment on above: Performed By: #### C BC #### [facility] [address] [place] [address] Dr. Yuliya Horn Erythrocyte distribution width (RBC) [Ratio] 12.7 % Normal 11.0-15.0 [facility] Comment on above: Performed By: #### C BC #### [facility] [address] [place] [address] Dr. Yuliya Horn Hematocrit (Bld) [Volume fraction] 46.5 % Normal 36.0-48.0 [facility] Comment on above: Performed By: #### C BC #### [facility] [address] [place] [address] Dr. Yuliya Horn Hemoglobin (Bld) [Mass/Vol] 15.4 g/dL Normal 12.0-16.0 [facility] Comment on above: Performed By: #### C BC #### [facility] [address] [place] [address] Dr. Yuliya Horn IG # 0.01 10e3/ul Normal 0.00-0.03 [facility] Comment on above: Performed By: #### C BC #### [facility] [address] [place] [address] Dr. Yuliya Horn IG % 0.2 % Normal 0.0-0.5 [facility] Comment on above: Performed By: #### C BC #### [facility] [address] [place] [address] Dr. Yuliya Horn LYMPH # 1.5 103/ul Normal 1.2-3.8 [facility] Comment on above: Performed By: #### C BC #### [facility] [address] [place] [address] Dr. Yuliya Horn Lymphocytes/100 WBC (Bld) 26.7 % Normal 20.5-60.0 [facility] Comment on above: Performed By: #### C BC #### [facility] [address] [place] [address] Dr. Yuliya Horn MANUAL DIFF REQ NO Normal [facility] Comment on above: Performed By: #### C BC #### [facility] [address] [place] [address] Dr. Yuliya Horn MCH (RBC) [Entitic mass] 30.3 pg Normal 26.7-34.0 [facility] Comment on above: Performed By: #### C BC #### [facility] [address] [place] [address] Dr. Yuliya Horn MCHC (RBC) [Mass/Vol] 33.1 g/dL Normal 29.9-35.2 [facility] Comment on above: Performed By: #### C BC #### [facility] [address] [place] [address] Dr. Yuliya Horn MCV (RBC) [Entitic vol] 91.4 fL Normal 81.0-99.0 [facility] Comment on above: Performed By: #### C BC #### [facility] [address] [place] [address] Dr. Yuliya Horn MONO # 0.4 103/ul Normal 0.3-0.8 [facility] Comment on above: Performed By: #### C BC #### [facility] [address] [place] [address] Dr. Yuliya Horn Monocytes/100 WBC (Bld) 6.9 % Normal 1.7-12.0 [facility] Comment on above: Performed By: #### C BC #### [facility] [address] [place] [address] Dr. Yuliya Horn NEUT # 3.4 103/ul Normal 1.4-6.5 [facility] Comment on above: Performed By: #### C BC #### [facility] [address] [place] [address] Dr. Yuliya Horn Neutrophils/100 WBC (Bld) 61.3 % Normal 43.0-75.0 [facility] Comment on above: Performed By: #### C BC #### [facility] [address] [place] [address] Dr. Yuliya Horn Platelet mean volume (Bld) [Entitic vol] 10.8 fL Normal 9.5-13.5 [facility] Comment on above: Performed By: #### C BC #### [facility] [address] [place] [address] Dr. Yuliya Horn PLT 221 103/ul Normal 150-450 [facility] Comment on above: Performed By: #### C BC #### [facility] [address] [place] [address] Dr. Yuliya Horn RBC 5.09 106/ul Normal 4.20-5.40 [facility] Comment on above: Performed By: #### C BC #### [facility] [address] [place] [address] Dr. Yuliya Horn WBC 5.5 103/ul Normal 4.0-11.0 [facility] Comment on above: Performed By: #### C BC #### [facility] [address] [place] [address] Dr. Yuliya Horn FERRITINon 07-30-2022 Ferritin [Mass/Vol] 63.0 ng/mL Normal 6.2-137.0 [facility] Comment on above: Performed By: #### F ERR, FT4 #### [facility] [address] [place] [address] Dr. Yuliya Horn FREE T4on 07-30-2022 Free T4 [Mass/Vol] 0.83 ng/dL Normal 0.76-1.46 [facility] Comment on above: Performed By: #### F ERR, FT4 #### [facility] [address] [place] [address] Dr. Yuliya Horn GLYCOHEMOGLOBIN A1Con 2021 ADA RECOMMENDATION SEE BELOW Normal [facility] Comment on above: Result Comment: ADA RECOMMENDED LIMIT 4.0 - 6.0 ADA THERAPEUTIC TARGET < 7.0 ACTION SUGGESTED > 7.0 Performed By: #### A 1C #### [facility] [address] [place] [address] Dr. Yuliya Horn Glucose [Mass/Vol] 105 mg/dL Normal [facility] Comment on above: Performed By: #### A 1C #### [facility] [address] [place] [address] Dr. Yuliya Horn HbA1c (Bld) [Mass fraction] 5.3 % Normal 4.5-6.2 [facility] Comment on above: Performed By: #### A 1C #### [facility] [address] [place] [address] Yuliya Horn TSHon 07-30-2022 TSH 2.175 uIU/mL Normal 0.358-3.740 [facility] Comment on above: Performed By: #### T SH #### [facility] [address] [place], [place] [address] Dr. Yuliya Horn COVID Quick Testingon 2020 Result Negative [employer] Other Covid-19 PCR (CVDTB)on 08-23 SARS-CoV-2 (COVID-19) RNA RAJ+probe Ql (Unsp spec) Not detected Normal NOT DETECTED [facility] Comment on above: Result Comment: This test is not yet approved or cleared by the [place] FDA. When there are no FDA-approved or cleared tests available, and other criteria are met, FDA can make tests available under an emergency access mechanism called an Emergency Use Authorization (EUA). The EUA for this test is supported by the Assistant Office Manager of Health and Human Service's (HHS's) declaration [...] SARS-CoV-2. Performed By: #### C VDTBH #### [facility] [address] [place], [place] [address] Dr. Yuliya Horn Vital Signs Date Time Vital Sign Value Performing Clinician Facility 08-27-2024 09:48-0500 Body mass index (BMI) [Ratio] 31.45 kg/m2 [employer] Phone: [facility] 08-27-2024 09:48-0500 Body weight 91.08 kg [employer] Work Phone: [facility] 08-27-2024 09:48-0500 Diastolic blood pressure 76 mm[Hg] Bere Joanna DO Work Phone: [facility] 08-27-2024 09:48-0500 Systolic blood pressure 112 mm[Hg] Bere Joanna DO Work Phone: [facility] 05-11-2023 09:30-0400 Body height 170.18 cm Judie Ernestine Other [employer] Other 05-11-2023 09:30-0400 Body mass index (BMI) [Ratio] 28.19 kg/m2 Judie Ernestine Other [employer] Other 05-11-2023 09:30-0400 Body temperature 97.9 [degF] Judie Ernestine Other [employer] Other 05-11-2023 09:30-0400 Body weight 81.65 kg Judie Ernestine Other [employer] Other 05-11-2023 09:30-0400 Diastolic blood pressure 77 mm[Hg] Judie Ernestine Other [employer] Other 05-11-2023 09:30-0400 Respiratory rate 16 /min Judie Ernestine Other [employer] Other 05-11-2023 09:30-0400 SaO2% (BldA) [Mass fraction] 100 % Judie Ernestine Other [employer] Other 05-11-2023 09:30-0400 Systolic blood pressure 124 mm[Hg] Judie Ernestine Other [employer] Other 11-23-2022 09:45-0500 Body height 170.18 cm Brea Hasmukh Other [employer] Other 11-23-2022 09:45-0500 Body mass index (BMI) [Ratio] 28.97 kg/m2 Brea Noe Other [employer] Other 11-23-2022 09:45-0500 Body temperature 98.7 [degF] Brea Noe Other [employer] Other 11-23-2022 09:45-0500 Body weight 83.92 kg Brea Noe Other [employer] Other 11-23-2022 09:45-0500 Respiratory rate 18 /min Brea Noe Other [employer] Other 11-23-2022 09:45-0500 SaO2% (BldA) [Mass fraction] 97 % Brea Noe Other [employer] Other 09-07-2022 11:15-0500 Body height 170.18 cm Judie Sinha Other [employer] Other 09-07-2022 11:15-0500 Body mass index (BMI) [Ratio] 26.94 kg/m2 Judie Sinha Other [employer] Other 09-07-2022 11:15-0500 Body temperature 98.2 [degF] Judie Ernestine Other [employer] Other 09-07-2022 11:15-0500 Body weight 78.02 kg Judie Sinha Other [employer] Other 09-07-2022 11:15-0500 Diastolic blood pressure 86 mm[Hg] Judie Sinha Other [employer] Other 09-07-2022 11:15-0500 Respiratory rate 18 /min Judie Sinha Other [employer] Other 09-07-2022 11:15-0500 SaO2% (BldA) [Mass fraction] 99 % Judie Sinha Other [employer] Other 09-07-2022 11:15-0500 Systolic blood pressure 129 mm[Hg] Judie Sinha Other [employer] Other 09-07-2021 11:15-0500 Body height 170.18 cm Missy Ricoault Other [employer] Other 09-07-2021 11:15-0500 Body mass index (BMI) [Ratio] 26.62 kg/m2 Missy Lawrence Other [employer] Other 09-07-2021 11:15-0500 Body temperature 98.6 [degF] Missy Lawrence Other [employer] Other 09-07-2021 11:15-0500 Body weight 77.11 kg Missy Ricoault Other [employer] Other 09-07-2021 11:15-0500 Respiratory rate 18 /min Missy Lawrence Other [employer] Other 09-07-2021 11:15-0500 SaO2% (BldA) [Mass fraction] 98 % Missy Lawrence Other [employer] Other Encounters Encounter Date Encounter Type Care Provider Facility Start: 08-27-2024 End: 08-27-2024 ambulatory BERE JOANNA Not Available Start: 08-27-2024 End: 08-27-2024 Bamboo flowsheet Bere Joanna DO Work Phone: [facility] Start: 08-27-2024 End: 09-05-2024 Bamboo flowsheet Bere Joanna DO Work Phone: [facility] Start: 08-27-2024 End: 09-05-2024 Clinisync Result Encounter Generic External Data Provider [facility] Unsolicited Start: 08-27-2024 End: 08-27-2024 Patient encounter procedure Bere Joanna DO Work Phone: [facility] Work Phone: Start: 08-27-2024 End: 08-27-2024 Periodic preventive med est patient 40-64yrs Bere Joanna DO Work Phone: [facility] Comment on above: Well woman exam with routine gynecological exam; Anxiety Start: 08-27-2024 End: 08-27-2024 ambulatory BERE JOANNA Not Available Start: 10-17-2023 End: 10-17-2023 ambulatory ALTAGRACIA CHRISTIAN Not Available Start: 05-11-2023 Office outpatient vi sit 15 minutes Judie Sinha [facility] Start: 05-11-2023 End: 05-11-2023 ambulatory Judie Sinha [employer] Other Start: 05-11-2023 End: 05-11-2023 Departed Referred BEHAVIORAL HEALTH TECH-C Judie Sinha Work Phone: [facility] [place] Work Phone: Start: 11-23-2022 End: 11-23-2022 ambulatory Brea Noe Other [employer] Other Start: 11-23-2022 Office outpatient vi sit 25 minutes Brea Noe [facility] Start: 09-07-2022 End: 09-07-2022 ambulatory Judie Yungmond Other [place] [employer] Other Start: 09-07-2022 Office outpatient vi sit 15 minutes Judie Ernestine [facility] Start: 08-02-2022 Encounter for gynecological examination (general) (routine) without abnormal findings DR BERE MARSHALL [facility] Start: 07-30-2022 End: 07-30-[address] BERE MARSHALL Facility:[facility] Start: 07-30-2022 End: 07-30-2022 Encounter for gynecological examination (general) (routine) without abnormal findings DR BERE MARSHALL Facility:[facility] Start: 09-07-2021 End: 09-07-2021 ambulatory MISSY GODINEZ [email or web address] [email or web address] Other Start: 09-07-2021 Office outpatient vi sit 15 minutes Missy Godinez [facility] Procedures Date Procedure Procedure Detail Performing Clinician Start: 08-27-2024 IGP,APTIMA HPV,AGE GDLN Bere Marshall DO Work Phone: Start: 08-05-2023 Microscopic observat ion [Identifier] in Cervix by Cyto stain Bere Marshall DO Work Phone: Start: 05-11-2023 Piperacillin/tazobactam Judie Ernestine Other Start: 07-30-2022 Mammography Bere jimenez DO Work Phone: Plan of Treatment Date Care Activity Detail Author Start: 08-05-2026 Screening for malign ant neoplasm of cervix [facility] Start: 09-09-2025 End: 09-09-2025 Patient encounter procedure 09/09/2025 10:00 AM EST Office Visit [facility] [address] [place] [address] Bere Marshall DO [address] [place] [address] [facility] Start: 08-27-2024 End: 08-27-2024 Professional / ancillary services management 08/27/2024 2:30 PM EST Ancillary Procedure [facility] [address] [place] [id number] [facility] Start: 08-27-2024 End: 08-27-2024 Patient encounter procedure 08/27/2024 9:20 AM EST Office Visit [facility] [address] [address] Bere Marshall DO [address] [place] [address] Arrived [facility] Comment on above: Arrived Start: 05-24-2024 Influenza vaccination Influenza Vacc ine (#1) [facility] Start: 07-30-2023 Screening for malign ant neoplasm of breast Mammogram [facility] Start: 05-11-2023 Bacteria identified in Urine by Culture [facility] Start: 2007 Screening for malign ant neoplasm of cervix HPV/Cotest [facility] Start: 1975 Screening for malign ant neoplasm of colon [facility] THIN PREP TIS PAP AN D HR HPV DNA THIN PREP TIS PAP AND HR HPV DNA Pathology and Cytology Routine Well woman exam with routine gynecological exam Ordered: 08/27/2024 [facility] Work Phone: Comment on above: Ordered: 08/27/2024 Payers Date Payer Category Payer Self-pay [id number] 2023 Private Health Insurance [place] [address] [id number] 2023 Private Health Insurance [id number] 1977 Unknown [id number] 1977 Unknown [id number] 1977 Unknown [id number] [id number] 1977 Unknown [id number] [id number] 1977 Unknown [id number] 1959 Private Health Insurance [id number] Private Health Insurance [id number] Unknown [place] WATTERS/IFRAH [id number] Unknown [id number] [id number] Social History Date Type Detail Facility Unknown if ever smoked [employer] Other Start: 02-21-2023 End: 10-17-2023 Sex Assigned At [place] [employer] Other Start: 1975 Sex Assigned At Female F [facility] Start: 02-20-2023 [facility] Start: 02-20-2023 Tobacco use and exposure Smokeless tobacco non-user [facility] Start: 10-17-2023 End: 08-27-2024 Alcoholic beverage intake Ex-drinker (finding) [facility] Start: 02-21-2023 End: 10-17-2023 History of Social function [facility] Frequency of Alcohol Consumption Not on file [facility] How often do you hav e 6 or more drinks on 1 occasion? Never [facility] Start: 07-21-2023 Alcohol Comment caffeine: 3-4 cups per day chocolate, soda [facility] Start: 1975 Sex assigned at Not on file [facility] History of Present illness Narrative 08-27-2024 Samira Jordan, INSIDE BARREL LATHE OPERATOR - 08/27/2024 9:20 AM EST Note Date & Type Note Facility 08-27-2024 History of Presen t illness Narrative Reason for Appointment: Patient ID: Caitlin Israel is a 49 y.o. female who presents for Well Women Visit Patient presents today for Annual Exam. MEDICATIONS Current Outpatient Medications Medication Instructions buPROPion SR (WELLBUTRIN SR) 150 mg, Oral, Daily predniSONE (Deltasone) 20 MG tablet 3 tabs x 2 days, 2 tabs x 2 days, 1 1/2 tab x 2 days, 1 tab x 2 days, 1/2 tab x 2 days then stop ALLERGIES Allergies Allergen Reactions Sulfamethoxazole Rash Trimethoprim Rash PROBLEMS Active Ambulatory Problems Diagnosis Date Noted Anxiety 02/20/2023 Iron deficiency anemia due to chronic blood loss 02/20/2023 Microcytic anemia 02/20/2023 Non-intractable cyclical vomiting with nausea 02/20/2023 Other fatigue 02/20/2023 Overactive bladder 02/20/2023 Sinusitis 02/20/2023 Slow transit constipation 02/20/2023 Varicose veins of both lower extremities with inflammation 02/21/2023 Resolved Ambulatory Problems Diagnosis Date Noted No Resolved Ambulatory Problems Past Medical History: Diagnosis Date Anemia COVID 11/23/2022 Depression (CMS/HCC) Influenza A 09/07/2022 HISTORY PAST MEDICAL HISTORY SOCIAL HISTORY Past Medical History: Diagnosis Date Anemia Anxiety COVID 11/23/2022 Positive Depression (CMS/HCC) Influenza A 09/07/2022 Microcytic anemia 01/16/2017 Social History Tobacco Use Smoking status: Never Smokeless tobacco: Never Substance Use Topics Alcohol use: Not Currently Comment: caffeine: 3-4 cups per day chocolate, soda Drug use: Never FAMILY HISTORY Family History Problem Relation Name Age of Onset Diabetes Mother Hypertension Mother Mental illness Mother Hypertension Father Diabetes Father Diabetes Maternal Grandmother Hypertension Maternal Grandmother SURGICAL HISTORY Past Surgical History: Procedure Laterality Date DILATION AND CURETTAGE OF UTERUS ENDOMETRIAL ABLATION 05/2019 TUBAL LIGATION Bilateral 2006 REVIEW OF SYSTEMS Review of Systems: Review of Systems All other systems reviewed and are negative. OBJECTIVE Objective: Physical Exam Constitutional: Appearance: Normal appearance. She is well-developed. Genitourinary: Vulva normal. Breasts: Breasts are soft. Right: Normal. Left: Normal. Cardiovascular: Rate and Rhythm: Normal rate and regular rhythm. Pulmonary: Effort: Pulmonary effort is normal. Breath sounds: Normal breath sounds. Abdominal: General: Bowel sounds are normal. There is no distension. Palpations: Abdomen is soft. Tenderness: There is no abdominal tenderness. There is no guarding or rebound. Musculoskeletal: General: No swelling. Normal range of motion. Right lower leg: No edema. Left lower leg: No edema. Neurological: Mental Status: She is alert and oriented to person, place, and time. Skin: General: Skin is warm and dry. Psychiatric: Mood and Affect: Mood normal. Behavior: Behavior normal. Vitals and nursing note reviewed. Exam conducted with a engrosser present. Vitals: Estimated body mass index is 31.45 kg/m as calculated from the following: Height as of 02/21/23: 5' 7 . Weight as of this encounter: 200 lb 12.8 oz. BP: 112/76 No LMP recorded. ASSESSMENT & PLAN ICD-10-CM 1. Well woman exam with routine gynecological exam Z01.419 THIN PREP TIS PAP AND HR HPV DNA 2. Anxiety F41.9 buPROPion SR (Wellbutrin SR) 150 MG 12 hr tablet Annual: Patient presents today for an annual exam. Patient states she is doing well and has complaints of irregular bleeding in June. Patient had previously had ablation and would like to monitor bleeding and if patient desires to have ultrasound ordered to assess if needed. Pap was obtained without difficulty and patient given mammogram order to have scheduled/obtained. Follow Up: Patient is to return in one year for annual unless needed otherwise. Documented by Samira Jordan LPN on behalf of: Bere Marshall DO documented in this encounter [facility] Evaluation note 05-11-2023 Note Date & Type [...] as needed for aches pains or fevers [employer] Other Evaluation note 11-23-2022 Note Date & [...] treatment plan. Patient left in stable condition [employer] Other Evaluation note 09-07-2022 Note Date & [...] no improvement in 2 to 3 days. [employer] Other Evaluation note 09-07-2021 Note Date & [...] Patient care instructions given in writting by [facility] Home document. [employer] Other Evaluation note Note Date & Type Note Facility Evaluation note No assessment information availa [facility] Work Phone: Evaluation note Note Date & Type Note Facility Evaluation note Diagnosis Well woman exam with routine gynecological exam Routine gynecological examination Anxiety Anxiety state, unspecified documented in this encounter [facility] History general Narrative - Reported Note Date & Type Note Facility History general Narrative - Reported Type Medical History chronic depression Medical History anxiety Surgical History tubual ligation 2005 [employer] Other History general Narrative - Reported Note Date & Type Note Facility History general Narrative - Reported Type Medical History chronic depression Medical History anxiety Surgical History tubual ligation 2006 Surgical History ablasion [employer] Other Summary Purpose Family History No Family History Records FoundNo Family History Records FoundNo Family History Records Found Advance Directives No Advanced Directives Records Found Advance Directive Response Recorded Date/ Time Advance Directives No May 8:09pm Chief Complaint and Reason for Visit Chief Complaint Dysuria Additional Source Comments REASON FOR VISIT (unrecogniz ed section and content) Reason Comments Well Women Visit INFORMATION SOURCE (unrecogn ized section and content) DATE CREATED AUTHOR 08/07/2022 [facility] DATE CREATED AUTHOR AUTHOR'S ORGANIZ ATION 05/15/2023 [facility] DATE CREATED AUTHOR AUTHOR'S ORGANIZ ATION 09/09/2024 [facility] Care Teams (unrecognized sec tion and content) Team Status: Inactive Member Role Status Dates Judie Sinha , BEHAVIORAL HEALTH TECH-C Attending Provider Active [employer] Metals Hand Engraver Relationship Specialty Start Date End Date Crow Akins MD [address] [facility] [address] [place] [address] PCP - General Family Medicine 02/12/23 [employer] Metals Hand Engraver Relationship Specialty Start Date End Date Crow Akins MD [address] [facility] [address] [place] [address] PCP - General Family Medicine 02/12/23 Soft Metals Hand Engraver Relationship Specialty Start Date End Date Crow Akins MD [address] [facility] [address] [place] [address] PCP - General Family Medicine 02/12/23 Goals [...] BE BASED ON THE PRIMARY CLINICAL RECORDS. [facility]. provides no warranty or guarantee of the accuracy or completeness of information in this document.
--- NOTE | 2024-09-24 14:58 | US_ITS ---
Patient Name: DAVID NIELSEN MR#: [id number] : 1975 Exam Date: 09/24/2024 Ordering Doctor: DR Ananth Marshall . RADIOLOGY REPORT PROCEDURE: MM DIAGNOSTIC MAMMO UNILAT RT, 09/24/2024, 14:46 US BREAST RT LIMITED, 09/24/2024, 15:12 COMPARISON: MM TOMOSYNTHESIS SCREENING BI, 08/27/2024. INDICATIONS: Abnormal MAmmogram Calculator Name NCI Breast Cancer Risk Assessment Tool 5 Year Breast Cancer Risk 0.70% Lifetime Breast Cancer Risk 7.70% Personal Breast Cancer No Personal Ovarian Cancer No Treatments None Family Cancers None LOCATION: [facility] BREAST COMPOSITION: There are scattered areas of fibroglandular density. FINDINGS: DIAGNOSTIC CATEGORY 3--PROBABLY BENIGN FINDING. THE FOLLOWING FINDING(S) HAS A HIGH PROBABILITY OF A BENIGN ETIOLOGY: Spot compression views of the right breast demonstrate a 5.5 mm well-circumscribed round nodule upper outer quadrant posterior right breast. A 2nd 4.4 mm round well-circumscribed nodule is noted in the lower inner quadrant anterior right breast. No ultrasound abnormality to correspond in these 2 lesions. Six-month follow-up mammogram recommended Ultrasound demonstrates at the 4 o'clock position complex cystic structure measuring 8.4 x 4.9 x 8.2 cm with some peripheral blood flow. Six-month follow-up ultrasound is recommended RECOMMENDATIONS: SHORT TERM FOLLOW-UP ULTRASOUND RIGHT BREAST IN 6 MONTHS. SHORT TERM FOLLOW-UP DIAGNOSTIC MAMMOGRAM RIGHT BREAST IN 6 MONTHS. PLEASE NOTE: A NORMAL MAMMOGRAM DOES NOT EXCLUDE THE POSSIBILITY OF BREAST CANCER. A CLINICALLY SUSPICIOUS PALPABLE LUMP SHOULD BE BIOPSIED. Dictated by: Faisal Saeed MD on 09/24/2024 at 15:33 Approved by: Faisal Saeed MD on 09/24/2024 at 15:37
== END 2024-09-24 14:32 | disposition home or self-care (01) ==
PROVIDERS: PCP Family Medicine; Visit Provider Obstetrics & Gynecology
DX: R92.8 Other abnormal and inconclusive findings on diagnostic imaging of breast (principal); N63.11 Unspecified lump in the right breast, upper outer quadrant; N63.14 Unspecified lump in the right breast, lower inner quadrant
CPT/HCPCS: 76642; 77065

== ENCOUNTER 2025-09-09 19:24 | Outpatient (REF) | payer OTHER, SELFPAY ==
--- OUTSIDE RECORDS SUMMARY | 2025-09-09 10:00 | XMS_ITS | Encounter Summary ---
Author Organization [facility] Address [address] [place] [address] Care Team Providers Care Field Rep Name Role Phone Crow Akins MD Primary Care Provider [phone] Reason for Visit * ReasonCommentsWell Women Visit Encounter Details DateTypeDepartmentCare Team (Latest Contact Info)Ltpzqonjwyg59/18/2025 10:00 AM ESTProcedure Visit [facility] [address] [place] [phone] Olga Squires PA [address] [place], [facility] Well woman exam with routine gynecological exam; Breast cancer screening by mammogram; Breast nodule; Anxiety Social History Tobacco UseTypesPacks/DayYears UsedDateSmoking Tobacco: NeverSmokeless Tobacco: NeverAlcohol UseStandard Drinks/WeekCommentsNot Currently0 (1 standard drink = 0.6 oz pure alcohol)caffeine: 3-4 cups per day chocolate, sodaAUDIT-CAnswerDate RecordedFrequency of Alcohol ConsumptionNot on file02/21/2023Q2: How many drinks containing alcohol do you have on a typical day when you are drinking?Patient does not drink02/21/2023Q3: How often do you have six or more drinks on one occasion?Never02/21/2023HQ-2AnswerDate RecordedPatient Health Questionnaire-2 [id number] and Gender InformationValueDate RecordedSex Assigned at BirthNot on fileLegal LomHeuwwb01/15/2023 6:53 PM EDT Gender IdentityNot on fileSexual OrientationNot on filedocumented as of this encounter Last Filed Vital Signs Vital SignReadingTime TakenCommentsBlood Xawgqnbx983/7809/09/2025 10:25 AM EST Pulse--Temperature--Respiratory Rate--Oxygen Saturation--Inhaled Oxygen Concentration--Fcgidc11.2 kg (194 lb 6.4 oz)09/09/2025 10:25 AM ESTHeight--Body Mass Index30.4504 3:00 PM EDTdocumented in this encounter Progress Notes * Lynda Solano, MARVIN - 09/09/2025 10:00 AM EST Reason for Appointment: Patient ID: Caitlin Israel is a 50 y.o. female who presents for [facility] Women Visit Patient presents today for Annual Exam. MEDICATIONS Current Outpatient Medications Medication Instructions buPROPion SR (WELLBUTRIN SR) 150 mg, Oral, Daily ALLERGIES Allergies[1] PROBLEMS Active Ambulatory Problems Diagnosis Date Noted [...] History: Diagnosis Date Anemia COVID 11/23/2022 Depression Influenza A 09/07/2022 HISTORY PAST MEDICAL HISTORY SOCIAL HISTORY Medical History[2] Social History Tobacco Use Smoking status: Never Smokeless tobacco: Never Vaping Use Vaping status: Never Used Substance Use Topics Alcohol use: Not Currently Comment: caffeine: 3-4 cups per day chocolate, soda Drug use: Never FAMILY HISTORY Family History[3] SURGICAL HISTORY Surgical History[4] REVIEW OF SYSTEMS Review of Systems: Review of Systems Constitutional: Negative. HENT: Negative. Eyes: Negative. Respiratory: Negative. Cardiovascular: Negative. Gastrointestinal: Negative. Genitourinary: Negative. Musculoskeletal: Negative. Skin: Negative. Neurological: Negative. All other systems reviewed and are negative. Hematological: Negative. Endocrine: Negative. Allergic/Immunologic: Negative. OBJECTIVE Objective: Physical Exam Constitutional: Appearance: Normal [...] nursing note reviewed. Exam conducted with a mint wafer depositor present. Vitals: Estimated body mass index is 30.45 kg/m?? as calculated from the following: Height as of 12/24/24: 5' 7 . Weight as of this encounter: 194 lb 6.4 oz. BP: 118/78 No LMP recorded. Assessment/Plan ICD-10-CM 1. Well woman exam with routine gynecological exam Z01.419 THIN PREP TIS PAP AND HR HPV DNA 2. Breast cancer screening by mammogram Z12.31 Bilateral screening mammogram Bilateral screening mammogram CANCELED: Bilateral screening mammogram CANCELED: Bilateral screening mammogram 3. Breast nodule N63.0 Right diagnostic mammogram Assessment/Plan Annual Exam: Patient presents today for an annual exam. Patient states she is doing well and has no complaints. Pap was obtained without difficulty. Orders Placed This Encounter Procedures Bilateral screening mammogram Right diagnostic mammogram Follow Up: Patient is to return in one year for annual unless needed otherwise. Documented by Lynda Solano LPN on behalf of: EVETTE Pruett [1] Allergies Allergen Reactions Sulfamethoxazole Rash Trimethoprim Rash [2] Past Medical History: Diagnosis Date Anemia Anxiety COVID 11/23/2022 Positive Depression Influenza A 09/07/2022 Microcytic anemia 01/16/2017 [3] Family History Problem Relation Name Age of Onset Diabetes Mother Hypertension Mother Mental illness Mother Hypertension Father Diabetes Father Diabetes Maternal Grandmother Hypertension Maternal Grandmother [4] Past Surgical History: Procedure Laterality Date DILATION AND CURETTAGE OF UTERUS ENDOMETRIAL ABLATION 05/2019 TUBAL LIGATION Bilateral 2005 documented in this encounter Plan of Treatment DateTypeDepartmentCare Team (Latest Contact Info)Mlrmeqrlnpr93/07/2027 10:00 AM ESTProcedure Visit [facility] [address] [place] [address] Olga Squires PA [address] [place] [address] NameTypePriorityAssociated DiagnosesOrder ScheduleTHIN PREP TIS PAP AND HR HPV DNAPathology and CytologyRoutine Well woman exam with routine gynecological exam Ordered: 09/09/2025ilateral screening mammogramImagingRoutine Breast cancer screening by mammogram Expected: 09/09/2025 (Approximate), Expires: 11/10/2026Right diagnostic mammogramImagingRoutine Breast nodule Expected: 09/09/2025 (Approximate), Expires: 11/10/2026documented as of this encounter Visit Diagnoses Diagnosis Well woman exam with routine gynecological exam Routine gynecological examination Breast cancer screening by mammogram Breast nodule Other (abnormal) findings on radiological examination of breast Anxiety Anxiety state, unspecified documented in this encounter Care Teams Team MemberRelationshipSpecialtyStart DateEnd Date Crow Akins MD [address] [facility] [address] [place] [address] PCP - GeneralFamily Medicine02/12/23documented as of this encounter
--- OUTSIDE RECORDS SUMMARY | 2025-09-09 19:28 | XMS_ITS | Clinical Summary ---
Author Organization [facility] Address [address] [place] [address] Care Team Providers Care Retail Stock Clerk Name Role Phone Crow Diaz MD Primary Care Provider [phone] Allergies Active AllergyReactionsCriticalityNoted DateCommentsSulfamethoxazoleRashLow 02/20/20237147PzsmjskcevilIjpsVuc10/31/2023 Medications MedicationSigDispense QuantityRefillsLast FilledStart DateEnd DateStatus buPROPion SR (Wellbutrin SR) 150 MG 12 hr tablet Indications:AnxietyTake 1 tablet (150 mg) by mouth Daily 90 tablet tive buPROPion SR (Wellbutrin SR) 150 MG 12 hr tablet Indications:AnxietyTake 1 tablet (150 mg) by mouth Daily 30 tablet 11110/28/20230924/05/2025Discontinued buPROPion SR (Wellbutrin SR) 150 MG 12 hr tablet Indications:AnxietyTAKE 1 TABLET BY MOUTH EVERY DAY 90 tablet Discontinued(Reorder) Active Problems ProblemNoted DateDiagnosed DateVaricose veins of both lower extremities with pakrbkeqtgcz28/01/4173Wtijwvv04/31/2023Iron deficiency anemia due to chronic blood loss02/20/2023Microcytic nibgvg2402/20/2023Non-intractable cyclical vomiting with trhwyf7302/20/2023Other virdedm6602/20/2023Overactive ujjtgtn7602/20/2023 Ibjxbmsuw13/31/2023Slow transit banitpnumean13/31/2023 Encounters DateTypeDepartmentCare KebjXkaufyvtcjf86/18/2025 10:00 AM ESTProcedure Visit [facility] [address] [address] Olga Squires PA Well woman exam with routine gynecological exam; Breast cancer screening by mammogram; Breast nodule; Qrbqxed6209/09/2025amboo flowsheet [facility] [address] [address] Olga Squires PA 08/31/2025Refill [facility] [address] [address] Ananth Marshall, DO Anxietyfrom Last 3 Months Family History Medical HistoryRelationNameCommentsDiabetesFatherHypertensionFatherDiabetes Maternal GrandmotherHypertensionMaternal GrandmotherDiabetesMotherHypertension MotherMental illnessMotherRelationNameStatusCommentsFatherAliveMaternal GrandmotherMother Social History Tobacco UseTypesPacks/DayYears UsedDateSmoking Tobacco: NeverSmokeless Tobacco: Never Tobacco Cessation:Counseling Given: Not Answered Alcohol UseStandard Drinks/WeekCommentsNot Currently0 (1 standard drink = 0.6 oz pure alcohol)caffeine: 3-4 cups per day chocolate, sodaAUDIT-CAnswerDate RecordedFrequency of Alcohol ConsumptionNot on file02/21/2023Q2: How many drinks containing alcohol do you have on a typical day when you are drinking?Patient does not drink02/21/2023Q3: How often do you have six or more drinks on one occasion?Never02/21/2023HQ-2AnswerDate RecordedPatient Health Questionnaire-2 Pwhoq374CommentsUnknownSex and Gender InformationValueDate RecordedSex Assigned at BirthNot on fileLegal KmkBbjrid96/15/2023 6:53 PM EDT Gender IdentityNot on fileSexual OrientationNot on file Last Filed Vital Signs Vital SignReadingTime TakenCommentsBlood Ntpjfcnh366/7812 10:25 AM EST Opbhw7319 3:00 PM BRPZaqtvkkpcla37.6 ??C (97.8 ??F)12/24/2024 3:00 PM EDTRespiratory Tpyl565412/24/2024 3:00 PM EDTOxygen Udetqglxvw22%12/24/2024 3:00 PM EDTInhaled Oxygen Concentration--Drpkqe54.2 kg (194 lb 6.4 oz)09/09/2025 10:25 AM GXRPifwxr575.2 cm (5' 7 )12/24/2024 3:00 PM EDTBody Mass Index30.45 12/24/2024 3:00 PM EDT Plan of Treatment DateTypeDepartmentCare Team (Latest Contact Info)Jzkvkohgrfo46/07/2027 10:00 AM ESTProcedure Visit [facility] [address] [phone] Olga Squires PA [address] [place], [place] [id number] Health MaintenanceDue DateLast DoneCommentsCT Imvfawlcigyt1977Colonoscopy 1977Colorectal Cancer Bltbuyhph1977FIT-DNA1977FIT1977 FOBT1977 3775Vpfggcpndlopo1977HPV/Wqqgal7803/13/2007COVID-19 Vaccine ( season)/, 01/17/2021Influenza Vaccine (#1)2025 Pepgaoroy07/02/978747/10/2024, 08/27/2024, 07/30/2022, Additional history exists Cervical Cancer Cdggypzwe81/05/2027Pap Smear, 08/05/2023, 3Pneumococcal Vaccine: Pediatrics (0 to 5 Years) and At-Risk Patients (6 to 64 Years)Aged OutNo longer eligible based on patient's age to complete this topic Procedures Procedure NamePriorityDate/TimeAssociated DiagnosisCommentsBI MAMMOGRAM DIAGNOSTIC RIGHT09/24/2024 3:37 PM EST PAP KYUWGTkhmpre82/05/2024 12:00 AM ESTfrom Last 3 Months or Most Recently Relevant to Health Maintenance Results * Right diagnostic mammogram (09/24/2024 3:37 PM EST)Anatomical RegionLaterality ModalityBreastRightMammographySpecimen (Source)Anatomical Location / LateralityCollection Method / VolumeCollection TimeReceived Time09/24/2024 3:37 PM EST Narrative 09/24/2024 3:38 PM EST [facility] ?[address] ? [place] [address] ? Mammography Report ? Signed ? Patient: CAITLIN ISRAEL ?MR#: [id number] ?? : 1975 ?Acct:[id number] ?? Age/Sex: 49 / F ?ADM Date: 09/24/24 ?? Loc: MAMMO ? Attending Dr: Ananth Marshall D.O. ? Ordering Physician: Ananth Marshall D.O. ?Results: ? Date of Service: 09/24/24 ?Follow Up: ? Procedure(s): MM diagnostic mammo unilat RT ?? Accession Number(s): [id number] ? cc: CROW DIAZ ; Ananht Marshall D.O. ? Patient Name: ? CAITLIN ISRAEL ? MR#: [id number] ? : 1975 ? Exam Date: 09/24/2024 ?? Ordering Doctor: DR Ananth Marshall . ? RADIOLOGY REPORT ? PROCEDURE: ? MM DIAGNOSTIC MAMMO UNILAT RT, 09/24/2024, 14:46 ?? US BREAST RT LIMITED, 09/24/2024, 15:12 ? COMPARISON: ? MM TOMOSYNTHESIS SCREENING BI, 08/27/2024. ? INDICATIONS: ? Abnormal MAmmogram ? Calculator Name ? NCI Breast Cancer Risk Assessment Tool ?? 5 Year Breast Cancer Risk ? 0.70% ?? Lifetime Breast Cancer Risk ? 7.70% ?? Personal Breast Cancer ?No ?? Personal Ovarian Cancer ? No ?? Treatments ? None ?? Family Cancers ? None ? LOCATION: ? [facility] ? BREAST COMPOSITION: ? There are scattered areas of fibroglandular density. ? FINDINGS: ? DIAGNOSTIC CATEGORY 3--PROBABLY BENIGN FINDING. ??THE FOLLOWING FINDING(S) HAS ?? A HIGH PROBABILITY OF A BENIGN ETIOLOGY: ? Spot compression views of the right breast demonstrate a 5.5 mm ?? well-circumscribed round nodule upper outer quadrant posterior right breast. ? A 2nd 4.4 mm round well-circumscribed nodule is noted in the lower inner ?? quadrant anterior right breast. ??No ultrasound abnormality to correspond in ?? these 2 lesions. ??Six-month follow-up mammogram recommended ? Ultrasound demonstrates at the 4 o'clock position complex cystic structure ?? measuring 8.4 x 4.9 x 8.2 cm with some peripheral blood flow. ??Six-month ?? follow-up ultrasound is recommended ? RECOMMENDATIONS: ? SHORT TERM FOLLOW-UP ULTRASOUND RIGHT BREAST IN 6 MONTHS. ? SHORT TERM FOLLOW-UP DIAGNOSTIC MAMMOGRAM RIGHT BREAST IN 6 MONTHS. ? PLEASE NOTE: ??A NORMAL MAMMOGRAM DOES NOT EXCLUDE THE POSSIBILITY OF BREAST ?? CANCER. ??A CLINICALLY SUSPICIOUS PALPABLE LUMP SHOULD BE BIOPSIED. ? Dictated by: Faisal Saeed MD on 09/24/2024 at 15:33 ? Approved by: Faisal Saeed MD on 09/24/2024 at 15:37 ? Dictated By: ?Faisal Saeed M.D. ? Signed By: ?09/24/24 1538 ? DD/ 36 ? TD/TT: ? Electric Refrigerator Preparer: Procedure Note Radiology, Radiologist, - 09/24/2024 [place] [address] Mammography Report Signed Patient: CAITLIN ISRAEL SMR#: [id number] : 1975Acct:[id number] Age/Sex: 49 / FADM Date: 09/24/24 Loc: MAMMO Attending Dr: Ananth Marshall D.O. Ordering Physician: Ananth Marshall D.O.Results: Date of Service: 09/24/24Follow Up: Procedure(s): MM diagnostic mammo unilat RT Accession Number(s): [id number] cc: CROW DIAZ ; Ananth Marshall D.O. Patient Name: CAITLIN ISRAEL MR#: [id number] : 1975 Exam Date: 09/24/2024 Ordering Doctor: DR Ananth Marshall . RADIOLOGY REPORT PROCEDURE: MM DIAGNOSTIC MAMMO UNILAT RT, 09/24/2024, 14:46 US BREAST RT LIMITED, 09/24/2024, 15:12 COMPARISON: MM TOMOSYNTHESIS SCREENING BI, 08/27/2024. INDICATIONS: Abnormal MAmmogram Calculator Name NCI Breast Cancer Risk Assessment Tool 5 Year Breast Cancer Risk 0.70% Lifetime Breast Cancer Risk 7.70% Personal Breast Cancer No Personal Ovarian Cancer No Treatments None Family Cancers None LOCATION: [facility] BREAST COMPOSITION: There are scattered areas of fibroglandulardensity. FINDINGS: DIAGNOSTIC CATEGORY 3--PROBABLY BENIGN FINDING. THE FOLLOWING FINDING(S)HAS A HIGH PROBABILITY OF A BENIGN ETIOLOGY: Spot compression views of the right breast demonstrate a 5.5 mm well-circumscribed round nodule upper outer quadrant posterior rightbreast. A 2nd 4.4 mm round well-circumscribed nodule is noted in the lower inner quadrant anterior right breast. No ultrasound abnormality to correspondin these 2 lesions. Six-month follow-up mammogram recommended Ultrasound demonstrates at the 4 o'clock position complex cystic structure measuring 8.4 x 4.9 x 8.2 cm with some peripheral blood flow. Six-month follow-up ultrasound is recommended RECOMMENDATIONS: SHORT TERM FOLLOW-UP ULTRASOUND RIGHT BREAST IN 6 MONTHS. SHORT TERM FOLLOW-UP DIAGNOSTIC MAMMOGRAM RIGHT BREAST IN 6 MONTHS. PLEASE NOTE: A NORMAL MAMMOGRAM DOES NOT EXCLUDE THE POSSIBILITY OFBREAST CANCER. A CLINICALLY SUSPICIOUS PALPABLE LUMP SHOULD BE BIOPSIED. Dictated by: Faisal Saeed MD on 09/24/2024 at 15:33 Approved by: Faisal Saeed MD on 09/24/2024 at 15:37 Dictated By: Faisal Saeed M.D. Signed By:09/24/24 1538 DD/ 1537 TD/TT: Electric Refrigerator Preparer: Authorizing ProviderResult TypeResult StatusGeneric External Data ProviderIMG BI PROCEDURESFinal Result * Pap Smear (08/27/2024 12:00 AM EST)Specimen (Source)Anatomical Location / LateralityCollection Method / VolumeCollection TimeReceived TimeSwabCervical swab / Unknown Narrative Authorizing ProviderResult TypeResult StatusFazio Nurse [facility] CYTOLOGY ORDERABLESFinal ResultPerforming OrganizationAddressCity/State/ZIP CodePhone Number EXTERNAL LAB from Last 3 Months or Most Recently Relevant to Health Maintenance Insurance Care Teams Team MemberRelationshipSpecialtyStart DateEnd Date Crow Diaz MD [address] [place] [address] PCP - GeneralFamily Medicine02/12/23
--- OUTSIDE RECORDS SUMMARY | 2025-09-09 19:28 | XMS_ITS | Encounter Summary ---
Author Organization [facility] Address [address] [place] [address] Care Team Providers Care Hand Stonecutter Name Role Phone Crow Akins MD Primary Care Provider [phone] Reason for Visit * ReasonCommentsMed Refill Encounter Details DateTypeDepartmentCare Team (Latest Contact Info)Yepvkjlpywv76/09/2025Refill [facility] [address] [place] [address] Ananth Marshall, [address] [place], [place] [id number] Anxiety Social History Tobacco UseTypesPacks/DayYears UsedDateSmoking Tobacco: [...] drinks on one occasion?Never02/21/2023HQ-2AnswerDate RecordedPatient Health Questionnaire-2 Zfnrh401CommentsUnknownSex and Gender InformationValueDate RecordedSex Assigned at BirthNot on fileLegal WssRymuif60/15/2023 6:53 PM EDT Gender IdentityNot on fileSexual OrientationNot on filedocumented as of this encounter Plan of Treatment DateTypeDepartmentCare Team (Latest Contact Info)Fmxskpvxzxl21/07/2027 10:00 AM ESTProcedure Visit [facility] [address] [place] [address] Olga Squires PA [address] [place] [address] documented as of this encounter Visit Diagnoses Diagnosis Anxiety Anxiety state, unspecified documented in this encounter Care Teams Team MemberRelationshipSpecialtyStart DateEnd Date Crow Akins MD [address] [facility] [address] [place] [address] PCP - GeneralFamily Medicine02/12/23documented as of this encounter
--- OUTSIDE RECORDS SUMMARY | 2025-09-09 19:28 | XMS_ITS | Encounter Summary ---
Author Organization [facility] Address [address] [place] [address] Care Team Providers Care Pulmonary Specialist Name Role Phone Crow Akins MD Primary Care Provider [phone] Encounter Details DateTypeDepartmentCare Team (Latest Contact Info)Lutmojhypry86/18/2025amboo flowsheet [facility] [address] [facility] [place] [address] Olga Squires PA [address] [facility] [address] [place], [facility] Social History Tobacco UseTypesPacks/DayYears UsedDateSmoking Tobacco: NeverSmokeless [...] drinks on one occasion?Never02/21/2023HQ-2AnswerDate RecordedPatient Health Questionnaire-2 Fnect752CommentsUnknownSex and Gender InformationValueDate RecordedSex Assigned at BirthNot on fileLegal BllTzteif10/15/2023 6:53 PM EDT Gender IdentityNot on fileSexual OrientationNot on filedocumented as of this encounter Plan of Treatment DateTypeDepartmentCare Team (Latest Contact Info)Pmjltrcmhrp12/07/2027 10:00 AM ESTProcedure Visit [facility] [address] [facility] [place] [address] Olga Squires PA [address] [facility] [place] [address] documented as of this encounter Visit Diagnoses Not on filedocumented in this encounter Care Teams Team MemberRelationshipSpecialtyStart DateEnd Date Crow Akins MD [address] [facility] [address] [place] [address] PCP - GeneralFamily Medicine02/12/23documented as of this encounter
[2025-09-14 11:09] LABS: Age Gdln ACOG Testing Note (.); IGP, Aptima HPV, rfx 16/18,45 Note (.)
== END 2025-09-09 19:25 | disposition home or self-care (01) ==
LOC: LAB 19:24
PROVIDERS: PCP Family Medicine; Visit Provider Physician Assistant
DX: Z01.419 Encounter for gynecological examination (general) (routine) without abnormal findings (principal)
CPT/HCPCS: 88175